=== PATIENT | female | born 1975 | race Caucasian/White ===

== ENCOUNTER 2022-04-28 11:04 | Outpatient (CLI) | payer OTHER, SELFPAY ==
--- NOTE | ~2022-04-28 | XR_ITS ---
Thoracic spine: Clinical Indication: Back pain AP and lateral views were performed. No fracture is seen. There is normal alignment of the vertebrae. The intervertebral disc spaces appe ar normal. Paravertebral soft tissues appear normal. Impression: No significant abnormalities noted. Reviewed, dictated and finalized at location [] ING MANAGER Impression: No significant abnormalities noted.
--- NOTE | ~2022-04-28 | XR_ITS ---
Right foot Technique: AP and lateral views were obtained. Clinical History: Pain Findings: No acute fracture or dislocation is seen. Osseous alignment is anatomic. Plantar calcaneal spur noted. Joint spaces are otherwise preserved without erosive or degenerative change. Soft tissues are unremarkable. Impression: Plantar calcaneal spur, otherwise unremarkable exam. Reviewed, dictated and finalized at location [] RUMENTAL MUSIC TEACHER Impression: Plantar calcaneal spur, otherwise unremarkable exam.
--- NOTE | ~2022-04-28 | XR_ITS ---
Lumbosacral Spine: AP and lateral views Clinical History: Back pain No fracture seen. Grade I anterolisthesis of L4 over L5 noted. Facet joint degenerative changes are p resent at L4-L5 and L5-S1. The intervertebral disc spaces are preserved. The sacroiliac joints are n ormally outlined. Impression: Grade 1 anterolisthesis of L4 over L5. Facet joint degenerative changes, as detailed above. Reviewed, dictated and finalized at location [] D CARE GROUP LEADER Impression: Grade 1 anterolisthesis of L4 over L5. Facet joint degenerative changes, as detailed above.
== END 2022-04-28 11:05 | disposition home or self-care (01) ==
LOC: ANHBWCIMG 11:06
PROVIDERS: PCP Family Medicine; Visit Provider Family Medicine
DX: M53.84 Other specified dorsopathies, thoracic region (principal); M77.31 Calcaneal spur, right foot; M51.36 Other intervertebral disc degeneration, lumbar region
CPT/HCPCS: 72070; 72100; 73620

== ENCOUNTER 2022-06-22 07:45 | Outpatient (CLI) | payer OTHER, SELFPAY ==
[2022-06-22 20:15] LABS: Alanine Aminotransferase 26 U/L (6-35); Albumin Level 4.4 g/dL (3.5-5.1); Alkaline Phosphatase 82 U/L (38-126); Anion Gap 7 mmol/L (8-16); Aspartate Amino Transferase 56 U/L (14-36); Bilirubin,Total 0.4 mg/dL (0.2-1.3); Blood Urea Nitrogen 14 mg/dL (7-17); Calcium 8.9 mg/dL (8.4-10.2); Carbon Dioxide 30 mmol/L (22-30); Chloride 103 mmol/L (98-107); Cholesterol 184 mg/dL (0-200); Estimated Glomerular Filt Rate > 60; Glucose 108 mg/dL (65-110); HDL Direct 54 mg/dL; Potassium 4.5 mmol/L (3.4-5.0); Sodium 140 mmol/L (137-145); Triglycerides 66 mg/dL (<150)
[2022-06-22 20:25] LABS: LDL Cholesterol Direct 93 mg/dL
[2022-06-22 20:46] LABS: Vitamin D 25 Hydroxy 24.5 ng/mL
[2022-06-22 21:40] LABS: Basophils Absolute Auto 0.1 K/mm3 (0.0-0.1); Basophils Percent Auto 0.9 % (0.2-1.2); Eosinophils Absolute Auto 0.5 K/mm3 (0-0.3); Eosinophils Percent Auto 5.9 % (0-4.4); Hematocrit 42.8 % (37.0-47.0); Hemoglobin 13.1 g/dL (12.0-15.0); Immature Granulocyte Absolute 0.02 K/mm3 (0.00-0.031); Immature Granulocyte Percent A 0.2 % (0-0.5); Lymphocytes Absolute Auto 2.67 K/mm3 (0.9-3.2); Lymphocytes Percent Auto 32.8 % (18.3-44.2); Mean Corpuscular HGB Conc 30.6 g/dl (32-36); Mean Corpuscular Hemoglobin 28.5 pg (26-34); Mean Corpuscular Volume 93.2 fl (80-100); Mean Platelet Volume 10.2 fl (7.4-10.4); Monocytes Absolute Auto 0.6 K/mm3 (0.1-0.6); Monocytes Percent Auto 7.7 % (2.6-8.5); Neutrophils Absolute Auto 4.3 K/mm3 (1.3-6.7); Neutrophils Percent Auto 52.5 % (45.5-73.1); Platelet Count Result 406 k/mm3 (150-375); Red Blood Count 4.59 M/mm3 (4.2-5.4); Red Cell Distribution Width 13.2 % (11.5-14.5); White Blood Count 8.1 K/mm3 (4.5-10.0)
== END 2022-06-22 07:46 | disposition home or self-care (01) ==
LOC: ANHBWCLAB 07:48
PROVIDERS: PCP Family Medicine; Visit Provider Family Medicine
DX: Z00.00 Encounter for general adult medical examination without abnormal findings (principal); E55.9 Vitamin D deficiency, unspecified
CPT/HCPCS: 36415; 80053; 80061; 82306; 85025

== ENCOUNTER 2022-07-16 12:03 | Outpatient (CLI) | payer OTHER, SELFPAY ==
--- NOTE | ~2022-07-16 | XR_ITS ---
Bilateral Hands Technique: Bilateral PA, oblique, and lateral views, and ball-catcher's view were obtained. Clinical History: Vitamin D deficiency, pain Findings: No acute fracture or dislocation is seen. Osseous alignment is anatomic. Joint spaces are p reserved. Soft tissues are unremarkable. Impression: Unremarkable bilateral hand radiographs. Reviewed, dictated and finalized at location . ION LEADER SCREEN PRINTING Impression: Unremarkable bilateral hand radiographs.
--- NOTE | ~2022-07-16 | XR_ITS ---
XR hip BI wo pelvis 07/16/2022 12:30 Indication: Vitamin D deficiency. Procedure: 2 views of each hip Comparison: No prior studies for comparison. Findings: There is moderate bilateral osteoarthritis of the hips. There are loose bodies superior to the right greater trochanter. No acute fracture or traumatic malalignment. No focal soft tissue abnor mality. Pelvic rings are intact. Impression: 1: Moderate symmetric osteoarthritis of the hips. Reviewed, dictated and finalized at location L. STANT CHIEF NURSING OFFICER Impression: 1: Moderate symmetric osteoarthritis of the hips.
[2022-07-16 12:53] LABS: Alanine Aminotransferase 26 U/L (6-35); Albumin Level 4.6 g/dL (3.5-5.1); Alkaline Phosphatase 75 U/L (38-126); Anion Gap 7 mmol/L (8-16); Aspartate Amino Transferase 25 U/L (14-36); Bilirubin,Total 0.5 mg/dL (0.2-1.3); Blood Urea Nitrogen 16 mg/dL (7-17); Carbon Dioxide 27 mmol/L (22-30); Chloride 107 mmol/L (98-107); Estimated Glomerular Filt Rate > 60; Glucose 97 mg/dL (65-110); Potassium 4.1 mmol/L (3.4-5.0); Sodium 141 mmol/L (137-145); Uric Acid 4.1 mg/dL (2.5-7.5)
[2022-07-16 13:16] LABS: Rheumatoid Factor < 8.6 IU/ML (<12)
[2022-07-19 16:04] LABS: Anti Cyclic Citrullinated Pept <16 Units (<20)
== END 2022-07-16 12:04 | disposition home or self-care (01) ==
PROVIDERS: PCP Family Medicine; Visit Provider Internal Medicine
DX: E55.9 Vitamin D deficiency, unspecified (principal); M19.90 Unspecified osteoarthritis, unspecified site; M16.0 Bilateral primary osteoarthritis of hip
CPT/HCPCS: 36415; 73130; 73521; 80053; 84550; 86200; 86430

== ENCOUNTER 2022-07-22 08:00 | Outpatient (NON) | payer OTHER, SELFPAY | END 2022-07-22 08:01 | disposition home or self-care (01) | LOC: ANHLAB 07-23 09:13 | PROVIDERS: PCP Family Medicine; Visit Provider Internal Medicine Gastroenterology | DX: Z12.11 Encounter for screening for malignant neoplasm of colon (principal) | CPT/HCPCS: 88305 ==

== ENCOUNTER 2022-07-22 10:26 | Day surgery (SDC) | payer OTHER, SELFPAY ==
[2022-06-26 09:36] VITALS: BMI 39.9
[2022-07-15 09:55] VITALS: BMI 39.1
--- NOTE | 2022-07-22 09:15 | WPDANESEPPF ---
Anes - Initial Pre Proc Eval Procedure: Operation Date: 07/22/22 12:00 Proposed Procedures p Screening Colonoscopy - Rojas Turner MD Date/Time: 07/22/22 09:15 Surgeon: Rojas Turner MD Pre Op Diagnosis: Neoplasm Screening Patient Data Age: 46 Gender: F Height: 1.55 m Weight: 94 kg Allergies Allergy/AdvReac Type Severity Reaction Status Date / Time No Known Allergies Allergy Verified 07/16/22 11:02 Home Medications Medication Instructions Recorded Confirmed Type calcium carbonate 200 mg calcium 200 mg PO .prn 11/30/19 07/15/22 History (500 mg) chewable tablet (Tums) cholecalciferol (vitamin D3) 1,250 1,250 mcg PO WEEKLY #14 caps 07/13/21 07/15/22 Rx mcg (50,000 unit) capsule Ozempic 0.25 mg or 0.5 mg (2 0.25 mg (0.2 mL) subcut WEEKLY #3 06/22/22 06/22/22 Rx mg/1.5 mL) subcutaneous pen mL injector (semaglutide) semaglutide (weight loss) 0.25 0.25 mg (0.5 mL) subcut WEEKLY #2 07/08/22 Rx mg/0.5 mL subcutaneous pen mL injector (Wegovy) Patient hx anesthesia problems: none Family hx anesthesia problems: none Results Review: All pre-operative results and documents have been reviewed as part of the pre-operative evaluation. [facility] Past Medical History Medical History (Updated 07/22/22 @ 11:40 by Rojas Turner MD) Allergies Anxiety Carpal tunnel syndrome Colon cancer screening IBS (irritable bowel syndrome) Inflammatory arthritis Migraines Obesity Family History Family History Mother Raynaud disease Rheumatoid aortitis Fibromyalgia COPD (chronic obstructive pulmonary disease) Osteoarthritis Father Diabetes mellitus DDD (degenerative disc disease) Hypertension Osteoarthritis Heart attack Grandparent Diabetes mellitus Heart disease Grandparent Brain cancer Grandparent Ovarian cancer Cerebrovascular accident Lung cancer COPD (chronic obstructive pulmonary disease) Sibling Lupus Diabetes mellitus DDD (degenerative disc disease) Rheumatoid aortitis Social History Social History Smoking status: Never smoker Tobacco type: e-cigarettes/vaping Alcohol intake: never Substance use: current Substance use type: marijuana Lack of Transportation: No Lack of Food: Never True Current Housing: I Have Housing Concerned About Future Housing: No Difficulty Paying Gas/Electric Bills: No Difficulty Paying for Meds: No Currently Unemployed: No Education: High School Diploma/GED Difficulty w/ Childcare or Family Care: No Living arrangements: with family Gender identity (if verbalized by the patient): Female Spiritual care concerns: No Anes - Eval Final PreProcedure Day of Procedure 07/22/22 09:15 Patient weight: obese Heart: regular rate and rhythm Lungs: clear to auscultation and normal air movement Airway: Mallampati scale class II Neurological: alert and oriented Last oral intake: >/= 8 hours ASA classification: II Emergent: no Anesthetic plan: proceed Anesthesia type and monitoring: general GIVS Results Review: All pre-operative results and documents have been reviewed as part of the pre-operative evaluation. Informed Consent: The patient's anesthetic plan and its attendant risks and benefits were discussed with the patient/family/POA. Questions were solicited and answers provided to the satisfaction of the patient/family/POA.
[2022-07-22 11:10] VITALS: BP 136/70; PULSE 66; RESP 20; TEMP 37.1; O2SAT 100
[2022-07-22] MEDS: LACTATED RINGERS 1,000 ML 150 ML IV CONT (11:39)
--- NOTE | 2022-07-22 11:39 | PM.HPGS ---
History of Present Illness History of Present Illness Consent: Risks, benefits, and alternatives have been discussed and questions answered. Patient agrees to proceed with procedure. Chief complaint: Neoplasm Screening Narrative: Bebeto Burk is a 46 year old female here for first screening colonoscopy Review of Systems Constitutional: Constitutional: Denies headache(s) and Denies weakness Eyes: Eyes: Denies blurry vision ENT: Reports Normal hearing present, Denies headache(s) and Denies neck pain Cardiovascular: Cardiovascular: Denies chest pain and Denies dyspnea Respiratory: Respiratory: Denies dyspnea Gastrointestinal: Gastrointestinal: Reports no additional gastrointestinal complaints Genitourinary: Genitourinary: Denies dysuria Musculoskeletal: Musculoskeletal: Denies neck pain Integumentary/Breasts: Skin/Breast: Denies dry skin Neurologic: Reports Normal hearing present, Denies headache(s) and Denies weakness Psychiatric: Psychiatric: Denies anxiety Endocrine: Endocrine: Denies change in body appearance Hematologic/Lymphatic: Hematologic/Lymphatic: Denies easy bleeding Allergic/Immunologic: Allergic/Immunologic: Denies urticaria [facility] Past Medical History Medical History (Updated 07/22/22 @ 11:40 by Rojas Turner MD) Allergies Anxiety Carpal tunnel syndrome Colon cancer screening IBS (irritable bowel syndrome) Inflammatory arthritis Migraines Obesity Family History Family History Mother Raynaud disease Rheumatoid aortitis Fibromyalgia COPD (chronic obstructive pulmonary disease) Osteoarthritis Father Diabetes mellitus DDD (degenerative disc disease) Hypertension Osteoarthritis Heart attack Grandparent Diabetes mellitus Heart disease Grandparent Brain cancer Grandparent Ovarian cancer Cerebrovascular accident Lung cancer COPD (chronic obstructive pulmonary disease) Sibling Lupus Diabetes mellitus DDD (degenerative disc disease) Rheumatoid aortitis Social History Social History Smoking status: Never smoker Tobacco type: e-cigarettes/vaping Alcohol intake: never Substance use: current Substance use type: marijuana Lack of Transportation: No Lack of Food: Never True Current Housing: I Have Housing Concerned About Future Housing: No Difficulty Paying Gas/Electric Bills: No Difficulty Paying for Meds: No Currently Unemployed: No Education: High School Diploma/GED Difficulty w/ Childcare or Family Care: No Living arrangements: with family Gender identity (if verbalized by the patient): Female Spiritual care concerns: No Meds Home Medications and Allergies Home Medications Medication Instructions Recorded Confirmed Type calcium carbonate 200 mg calcium 200 mg PO .prn 11/30/19 07/15/22 History (500 mg) chewable tablet (Tums) cholecalciferol (vitamin D3) 1,250 1,250 mcg PO WEEKLY #14 caps 07/13/21 07/15/22 Rx mcg (50,000 unit) capsule Ozempic 0.25 mg or 0.5 mg (2 0.25 mg (0.2 mL) subcut WEEKLY #3 06/22/22 06/22/22 Rx mg/1.5 mL) subcutaneous pen mL injector (semaglutide) semaglutide (weight loss) 0.25 0.25 mg (0.5 mL) subcut WEEKLY #2 07/08/22 Rx mg/0.5 mL subcutaneous pen mL injector (Wegovy) Allergies Allergy/AdvReac Type Severity Reaction Status Date / Time No Known Allergies Allergy Verified 07/16/22 11:02 Exam Const: General: comfortable and no acute distress HENMT: Face/Nose/Sinus: Normal nares present Eyes: General: appearance normal, both eyes and all related structures Neck: Neck: no JVD Resp: Auscultation: clear to auscultation bilaterally Cardio: Rate: regular rate Rhythm: regular rhythm GI: Inspection: non-distended GI Palp: Yes Soft to palpation Skin: General skin exam: normal color Neuro: General: gait normal Speech: normal
[2022-07-22 12:10] VITALS: BP 103/77; PULSE 73; RESP 16; O2SAT 100
[2022-07-22 12:20] VITALS: BP 119/85; PULSE 74; RESP 16; O2SAT 100
[2022-07-22 12:30] VITALS: BP 113/72; PULSE 78; RESP 16; O2SAT 100
--- NOTE | 2022-07-22 14:20 | WPDANESPN ---
Anes - Prog Note Post-Op Date/Time: 07/22/22 14:20 Cardiovascular status: normal Respiratory status: normal Airway patency: baseline Mental status: baseline Post-Op hydration status: normal Vital Signs: Last Vital Signs Temp 37.1 C 07/22/22 11:10 Pulse 78 07/22/22 12:30 Resp 16 07/22/22 12:30 BP 113/72 07/22/22 12:30 Pulse Ox 100 07/22/22 12:30 O2 Del Method Room Air 07/22/22 12:30 Pain Score (VAS): 0 I/O: Intake & Output 07/21/22 07/22/22 07/22/22 23:59 07:59 15:59 Intake Total 400 Balance 400 Post-procedural complaints: none Patient Feedback: Patient satisfied with anesthetic care.
== END 2022-07-22 12:45 | disposition home or self-care (01) ==
PROVIDERS: PCP Family Medicine; Visit Provider Internal Medicine Gastroenterology
PROC: 0DJD8ZZ Inspection of Lower Intestinal Tract, Via Natural or Artificial Opening Endoscopic (ICD-10-PCS; CPT 45378; principal; 2022-07-22 12:00)
DX: Z12.11 Encounter for screening for malignant neoplasm of colon (principal)
CPT/HCPCS: 45385